=== PATIENT | female | born 1975 | race African-American/Black ===

== ENCOUNTER 2024-01-20 17:30 | Emergency (ER) | payer MEDICAID, OTHER ==
[~2024-01-20] VITALS: Ht 170.2 cm; Wt 75.0 kg
[2024-01-20 17:32] VITALS: BP 140/80; PULSE 104; RESP 16; TEMP 98.1; O2SAT 100
[2024-01-20] MEDS ORDERED: IBUP-1523 MT (20:08)
[2024-01-20] MEDS ORDERED: TOPUD MT (20:08)
== END 2024-01-20 20:16 | disposition home or self-care (01) ==
LOC: ER 17:30
DX: S50.812A Abrasion of left forearm, initial encounter (principal); V98.8XXA Other specified transport accidents, initial encounter; Y93.89 Activity, other specified; Y92.89 Other specified places as the place of occurrence of the external cause; Y99.8 Other external cause status
CPT/HCPCS: 99283